=== PATIENT | female | born 1955 | race Hispanic/Latino ===

== ENCOUNTER 2017-09-20 14:22 | Inpatient (IN) | payer MEDICARE ==
[~2017-09-20] VITALS: Ht 149.9 cm; Wt 80.9 kg
[2017-09-20 14:39] LABS: BASOPHILS % (AUTO) 0.5 % (0.0-5.0); HEMATOCRIT 43.6 % (36-48); LYMPHOCYTES % (AUTO) 5.6 % (21.0-51.0); MEAN CORPUSCULAR HEMOGLOBIN 24.7 pg (27.0-33.0); MEAN CORPUSCULAR HGB CONC 30.3 g/dL (32.0-36.0); MEAN CORPUSCULAR VOLUME 81.8 fL (79-99); MONOCYTES % (AUTO) 3.4 % (3.0-13.0); NEUTROPHILS % (AUTO) 90.5 % (40.0-77.0); PLATELET COUNT (AUTO) 223 K/uL (130-400); RED BLOOD CELL COUNT(AUTO) 5.33 MIL/uL (4.00-5.50); RED CELL DISTRIBUTION WIDTH 17.1 % (11.0-15.5); WHITE BLOOD COUNT (AUTO) 12.9 K/uL (4.8-10.8)
[2017-09-20 14:56] LABS: ALBUMIN 3.8 g/dL (3.5-5.0); BILIRUBIN,TOTAL 1.9 mg/dL (0.2-1.0); CREATININE 2.4 mg/dL (0.5-1.5); POTASSIUM 3.7 mmol/L (3.5-5.1)
[2017-09-20] MEDS ORDERED: SODIUM CHLORIDE 0.9% 1000ML 1,000 ML IV ONE (15:07)
[2017-09-20] MEDS ORDERED: INSULIN HUMULIN R 100 UNIT/ML 3ML ONE ×3 (15:08→15:53)
[2017-09-20] MEDS ORDERED: SODIUM CHLORIDE 0.9% 100 ML IV ONE (15:51)
[2017-09-20] MEDS ORDERED: ASPIRIN 325 MG TABLET ONE (17:41)
[2017-09-20] MEDS ORDERED: ENOXAPARIN SODIUM 100 MG/1 ML SQ ONE (17:41)
[2017-09-20 19:52] VITALS: BP 90/48
[2017-09-20] MEDS ORDERED: INSULIN REGULAR, HUMAN 3ML 100 UNIT in SODIUM CHLORIDE 0.9% 99 ML IV PRN ×2 (20:45)
[2017-09-20] MEDS ORDERED: ACETAMINOPHEN 325 MG TAB PO PRN (20:45)
[2017-09-20] MEDS: SODIUM CHLORIDE 0.9% 1000ML 1,000 ML IV SCH (20:49)
[2017-09-20] MEDS ORDERED: METOPROLOL TARTRATE 25 MG TAB PO SCH (21:00)
[2017-09-20 22:12] LABS: CREATINE KINASE MB 20.7 ng/mL (0.5-3.6)
[2017-09-20 22:28] LABS: TROPONIN I 11.76 ng/mL (0.00-0.06)
[2017-09-21] VITALS (32 sets, daily range): BP systolic 65–145; BP diastolic 30–74
[2017-09-21] MEDS: ONDANSETRON HCL MDV 20ML 2 MG/ML VIAL IVP PRN (00:12)
[2017-09-21] MEDS ORDERED: NOREPINEPHRINE 4MG/NS 250ML 250 ML IV SCH (00:45)
[2017-09-21] MEDS ORDERED: SODIUM CHLORIDE 0.9% 500 ML IV SCH (00:45)
[2017-09-21] MEDS ORDERED: LOSA100T29 PO (01:36)
[2017-09-21] MEDS ORDERED: CARV6.25 PO (01:36)
[2017-09-21] MEDS ORDERED: GUAIFENESIN PO (01:36)
[2017-09-21] MEDS ORDERED: AEC81 PO (01:36)
[2017-09-21] MEDS ORDERED: TORS20TA4 PO (01:36)
[2017-09-21] MEDS ORDERED: ISOS120T10 PO (01:36)
[2017-09-21] MEDS ORDERED: SPIR25TA4 PO (01:36)
[2017-09-21] MEDS ORDERED: ATOR40TA71 PO (01:36)
[2017-09-21] MEDS ORDERED: CLOP75TA32 PO (01:36)
[2017-09-21] MEDS ORDERED: ESOM40CA54 PO (01:36)
[2017-09-21] MEDS: SODIUM CHLORIDE 0.9% 1000ML 1,000 ML IV SCH ×2 (02:21→04:10)
[2017-09-21] MEDS ORDERED: NOREPINEPHRINE BITARTRATE 1 MG/1 ML ML IV ONE (02:49)
[2017-09-21] MEDS: DEXTROSE 5 %-0.45 % NACL 1,000 ML IV SCH ×2 (03:12→07:30)
[2017-09-21 04:44] LABS: HEMATOCRIT 40.3 % (36-48); MEAN CORPUSCULAR HEMOGLOBIN 24.7 pg (27.0-33.0); MEAN CORPUSCULAR HGB CONC 32.1 g/dL (32.0-36.0); PLATELET COUNT (AUTO) 214 K/uL (130-400); RED BLOOD CELL COUNT(AUTO) 5.24 MIL/uL (4.00-5.50); RED CELL DISTRIBUTION WIDTH 16.3 % (11.0-15.5); WHITE BLOOD COUNT (AUTO) 15.8 K/uL (4.8-10.8)
[2017-09-21 05:17] LABS: CREATINE KINASE MB 16.4 ng/mL (0.5-3.6); CREATININE 2.6 mg/dL (0.5-1.5); THYROID STIMULATING HORMONE 1.07 uIU/mL (0.36-3.74)
[2017-09-21 05:18] LABS: HEMOGLOBIN A1C 11.6 % (4.0-6.0)
[2017-09-21 05:21] LABS: TROPONIN I 20.7 ng/mL (0.00-0.06)
[2017-09-21] MEDS ORDERED: ASPIRIN 325 MG TABLET PO SCH (09:00)
[2017-09-21] MEDS ORDERED: FAMOTIDINE/PF 20 MG/2 ML VIAL IV SCH (09:00)
[2017-09-21] MEDS: ENOXAPARIN SODIUM 80 MG/0.8 ML SQ SCH (09:05)
[2017-09-21] MEDS ORDERED: METOCLOPRAMIDE 10 MG/2 ML VIAL IVP PRN (10:00)
[2017-09-21] MEDS ORDERED: GUAIFENESIN SUGAR-FREE 100 MG/5 ML UDCUP PO PRN (10:15)
[2017-09-21] MEDS: INSULIN HUMULIN R 100 UNIT/ML 3ML SQ SCH ×3 (11:59→21:21)
[2017-09-21] MEDS: POTASSIUM CHLORIDE 20 MEQ ERTAB PO PRN ×2 (17:03→18:07)
[2017-09-21] MEDS: ATORVASTATIN CALCIUM 40 MG TABLET PO SCH (21:15)
[2017-09-21] MEDS: CARVEDILOL 6.25 MG TABLET PO SCH (21:16)
[2017-09-22] VITALS (14 sets, daily range): BP systolic 100–131; BP diastolic 50–75
[2017-09-22 03:14] LABS: HEMATOCRIT 38.8 % (36-48); MEAN CORPUSCULAR HEMOGLOBIN 25.1 pg (27.0-33.0); MEAN CORPUSCULAR HGB CONC 32.5 g/dL (32.0-36.0); MEAN CORPUSCULAR VOLUME 77.3 fL (79-99); PLATELET COUNT (AUTO) 166 K/uL (130-400); RED BLOOD CELL COUNT(AUTO) 5.02 MIL/uL (4.00-5.50); RED CELL DISTRIBUTION WIDTH 16.3 % (11.0-15.5); WHITE BLOOD COUNT (AUTO) 12.2 K/uL (4.8-10.8)
[2017-09-22 03:20] LABS: CREATININE 1.7 mg/dL (0.5-1.5); POTASSIUM 3.4 mmol/L (3.5-5.1)
[2017-09-22 03:54] LABS: B-TYPE NATRIURETIC PEPTIDE 1470 pg/mL (0-100)
[2017-09-22] MEDS: INSULIN HUMULIN R 100 UNIT/ML 3ML SQ SCH ×4 (07:05→21:06)
[2017-09-22 08:10] LABS: HEPATITIS A ANTIBODY IGM Negative (Negative); HEPATITIS B CORE IGM Negative (Negative); HEPATITIS Bs ANTIGEN SCREEN P Negative (Negative)
[2017-09-22] MEDS: TORSEMIDE 20 MG TAB PO SCH (08:27)
[2017-09-22] MEDS: LOSARTAN 100 MG TABLET PO SCH (08:28)
[2017-09-22] MEDS: CLOPIDOGREL BISULFATE 75 MG TAB PO SCH (08:28)
[2017-09-22] MEDS: PANTOPRAZOLE SODIUM 40 MG TABLET.DR PO SCH (08:28)
[2017-09-22] MEDS: SPIRONOLACTONE 25 MG TAB PO SCH (08:28)
[2017-09-22] MEDS: ASPIRIN 81 MG EC TAB PO SCH (08:28)
[2017-09-22] MEDS: CARVEDILOL 6.25 MG TABLET PO SCH ×2 (08:28→21:04)
[2017-09-22] MEDS: ISOSORBIDE MONO 60 MG TAB.SR PO SCH (08:28)
[2017-09-22] MEDS: ENOXAPARIN SODIUM 80 MG/0.8 ML SQ SCH (08:29)
[2017-09-22] MEDS ORDERED: INSU100V12 SQ (09:56)
[2017-09-22] MEDS: FUROSEMIDE 10 MG/ML 4ML VIAL IV SCH (11:30)
[2017-09-22] MEDS: POTASSIUM CHLORIDE 20 MEQ ERTAB PO PRN (11:30)
[2017-09-22] MEDS: ATORVASTATIN CALCIUM 40 MG TABLET PO SCH (21:04)
[2017-09-22] MEDS: INSULIN GLARGINE 100 UNITS/ML 10 ML VIAL SQ SCH (21:07)
[2017-09-23 03:37] VITALS: BP 105/59
[2017-09-23] MEDS: ONDANSETRON HCL MDV 20ML 2 MG/ML VIAL IVP PRN (04:19)
[2017-09-23 04:24] LABS: HEMATOCRIT 36.1 % (36-48); MEAN CORPUSCULAR HEMOGLOBIN 25.7 pg (27.0-33.0); MEAN CORPUSCULAR HGB CONC 33.2 g/dL (32.0-36.0); MEAN CORPUSCULAR VOLUME 77.4 fL (79-99); PLATELET COUNT (AUTO) 147 K/uL (130-400); RED BLOOD CELL COUNT(AUTO) 4.66 MIL/uL (4.00-5.50); RED CELL DISTRIBUTION WIDTH 16.5 % (11.0-15.5); WHITE BLOOD COUNT (AUTO) 7.6 K/uL (4.8-10.8)
[2017-09-23 04:40] LABS: CREATININE 1.5 mg/dL (0.5-1.5); POTASSIUM 3.2 mmol/L (3.5-5.1)
[2017-09-23 05:10] LABS: B-TYPE NATRIURETIC PEPTIDE 833 pg/mL (0-100)
[2017-09-23] MEDS: PANTOPRAZOLE SODIUM 40 MG TABLET.DR PO SCH (06:15)
[2017-09-23] MEDS: POTASSIUM CHLORIDE 20 MEQ ERTAB PO PRN (06:16)
[2017-09-23] MEDS: INSULIN HUMULIN R 100 UNIT/ML 3ML SQ SCH ×3 (06:19→17:29)
[2017-09-23] MEDS: INSULIN GLARGINE 100 UNITS/ML 10 ML VIAL SQ SCH (06:20)
[2017-09-23 07:00] VITALS: BP 123/70
[2017-09-23] MEDS: SPIRONOLACTONE 25 MG TAB PO SCH (09:02)
[2017-09-23] MEDS: ISOSORBIDE MONO 60 MG TAB.SR PO SCH (09:02)
[2017-09-23] MEDS: CARVEDILOL 6.25 MG TABLET PO SCH ×2 (09:02→21:40)
[2017-09-23] MEDS: TORSEMIDE 20 MG TAB PO SCH (09:02)
[2017-09-23] MEDS: ASPIRIN 81 MG EC TAB PO SCH (09:02)
[2017-09-23] MEDS: LOSARTAN 100 MG TABLET PO SCH (09:02)
[2017-09-23] MEDS: CLOPIDOGREL BISULFATE 75 MG TAB PO SCH (09:02)
[2017-09-23] MEDS: ENOXAPARIN SODIUM 80 MG/0.8 ML SQ SCH (09:03)
[2017-09-23] MEDS: FUROSEMIDE 10 MG/ML 4ML VIAL IV SCH (09:04)
[2017-09-23 11:34] VITALS: BP 109/59
[2017-09-23 16:43] VITALS: BP 111/70
[2017-09-23 20:00] VITALS: BP 107/63
[2017-09-23] MEDS: ATORVASTATIN CALCIUM 40 MG TABLET PO SCH (21:39)
[2017-09-24] VITALS: BP 111/55
[2017-09-24] MEDS: INSULIN HUMULIN R 100 UNIT/ML 3ML SQ SCH ×4 (02:14→17:34)
[2017-09-24] MEDS: INSULIN GLARGINE 100 UNITS/ML 10 ML VIAL SQ SCH ×2 (02:16→06:29)
[2017-09-24 04:00] VITALS: BP 175/55
[2017-09-24] MEDS: PANTOPRAZOLE SODIUM 40 MG TABLET.DR PO SCH (06:27)
[2017-09-24] MEDS: POTASSIUM CHLORIDE 20 MEQ ERTAB PO PRN (06:30)
[2017-09-24 06:43] LABS: POTASSIUM 3.5 mmol/L (3.5-5.1)
[2017-09-24 08:03] VITALS: BP 121/56
[2017-09-24] MEDS ORDERED: LACTULOSE 20 GM/30 ML UDCUP PO SCH (08:45)
[2017-09-24] MEDS: SPIRONOLACTONE 25 MG TAB PO SCH (09:07)
[2017-09-24] MEDS: TORSEMIDE 20 MG TAB PO SCH (09:07)
[2017-09-24] MEDS: ASPIRIN 81 MG EC TAB PO SCH (09:07)
[2017-09-24] MEDS: CARVEDILOL 6.25 MG TABLET PO SCH (09:07)
[2017-09-24] MEDS: LOSARTAN 100 MG TABLET PO SCH (09:07)
[2017-09-24] MEDS: CLOPIDOGREL BISULFATE 75 MG TAB PO SCH (09:07)
[2017-09-24] MEDS: ISOSORBIDE MONO 60 MG TAB.SR PO SCH (09:07)
[2017-09-24] MEDS: ENOXAPARIN SODIUM 80 MG/0.8 ML SQ SCH (09:08)
[2017-09-24] MEDS: FUROSEMIDE 10 MG/ML 4ML VIAL IV SCH (10:05)
[2017-09-24 11:56] VITALS: BP 121/63
[2017-09-24 16:55] VITALS: BP 95/52
== END 2017-09-24 18:33 | disposition home or self-care (01) | DRG 280 ==
LOC: EDH 14:22 → OBSVTOIN 15:52 → INTOOBSV 15:52 → EDHIP 15:52 → 2AH 19:44 → 2CH 09-21 01:53 → 2DH 09-22 15:46
PROVIDERS: ADMIT Internal Medicine; ATTEND Internal Medicine
DX: I21.4 Non-ST elevation (NSTEMI) myocardial infarction (principal); E11.00 Type 2 diabetes mellitus with hyperosmolarity without nonketotic hyperglycemic-hyperosmolar coma (NKHHC); N17.9 Acute kidney failure, unspecified; E72.51 Non-ketotic hyperglycinemia; E87.0 Hyperosmolality and hypernatremia; I13.0 Hypertensive heart and chronic kidney disease with heart failure and stage 1 through stage 4 chronic kidney disease, or unspecified chronic kidney disease; I50.22 Chronic systolic (congestive) heart failure; E11.21 Type 2 diabetes mellitus with diabetic nephropathy; E11.43 Type 2 diabetes mellitus with diabetic autonomic (poly)neuropathy; E11.65 Type 2 diabetes mellitus with hyperglycemia; E11.22 Type 2 diabetes mellitus with diabetic chronic kidney disease; E78.5 Hyperlipidemia, unspecified; E11.51 Type 2 diabetes mellitus with diabetic peripheral angiopathy without gangrene; I25.10 Atherosclerotic heart disease of native coronary artery without angina pectoris; I25.5 Ischemic cardiomyopathy; K31.84 Gastroparesis; K80.20 Calculus of gallbladder without cholecystitis without obstruction; N18.9 Chronic kidney disease, unspecified; I25.2 Old myocardial infarction; Z79.02 Long term (current) use of antithrombotics/antiplatelets; Z79.82 Long term (current) use of aspirin; Z79.899 Other long term (current) drug therapy; Z95.810 Presence of automatic (implantable) cardiac defibrillator; Z91.14 Patient's other noncompliance with medication regimen; Z86.73 Personal history of transient ischemic attack (TIA), and cerebral infarction without residual deficits; Z83.3 Family history of diabetes mellitus; Z82.49 Family history of ischemic heart disease and other diseases of the circulatory system; K31.89 Other diseases of stomach and duodenum
CPT/HCPCS: 36415; 76700; 80048; 80053; 80061; 80074; 82009; 82150; 82550; 82553; 82947; 82948; 83036; 83690; 83874; 83880; 84443; 84484; 85025; 85027; 93005; J1650; J1815; J1940; J3490; J7030; J7042

== ENCOUNTER 2018-04-20 17:01 | Emergency (ER) | payer MEDICARE ==
[~2018-04-20 17:01] MED LIST: AEC81 PO; ATOR40TA71 PO; CARV6.25 PO; CLOP75TA32 PO; ESOM40CA54 PO; GUAIFENESIN PO; INSU100V12 SQ; ISOS120T10 PO; LOSA100T20 PO; SPIR25TA6 PO; TORS20TA4 PO
[2018-04-20 18:16] LABS: BASOPHILS % (AUTO) 1.1 % (0.0-5.0); EOSINOPHILS % (AUTO) 0.4 % (0.0-8.0); HEMATOCRIT 31.8 % (36-48); LYMPHOCYTES % (AUTO) 8.7 % (21.0-51.0); MEAN CORPUSCULAR HGB CONC 31.4 g/dL (32.0-36.0); MEAN CORPUSCULAR VOLUME 76.4 fL (79-99); MONOCYTES % (AUTO) 7.9 % (3.0-13.0); NEUTROPHILS % (AUTO) 81.9 % (40.0-77.0); NUCLEATED RED BLOOD CELLS 0.1 % (0.0-0.19); PLATELET COUNT (AUTO) 201 K/uL (130-400); RED BLOOD CELL COUNT(AUTO) 4.16 MIL/uL (4.00-5.50); RED CELL DISTRIBUTION WIDTH 22.9 % (11.0-15.5); WHITE BLOOD COUNT (AUTO) 8.8 K/uL (4.8-10.8)
[2018-04-20 18:32] LABS: CREATININE 2.1 mg/dL (0.5-1.5); POTASSIUM 3.2 mmol/L (3.5-5.1)
[2018-04-20 18:36] LABS: ALBUMIN 2.7 g/dL (3.5-5.0); BILIRUBIN,DIRECT 1.1 mg/dL (0.0-0.3); BILIRUBIN,TOTAL 1.9 mg/dL (0.2-1.0); TOTAL PROTEIN, SERUM 6.6 g/dL (6.0-8.3)
[2018-04-20 18:37] LABS: B-TYPE NATRIURETIC PEPTIDE 2180 pg/mL (0-100)
[2018-04-20 19:35] LABS: APPEARANCE,URINE Clear (CLEAR); BILIRUBIN,URINE Negative (NEGATIVE); COLOR,URINE Dark Yellow (YELLOW); GLUCOSE, URINE (UA) Negative (NEGATIVE); KETONES,URINE Negative (NEGATIVE); LEUKOCYTE ESTERASE ,URINE Trace (NEGATIVE); NITRATE,URINE Negative (NEGATIVE); OCCULT BLOOD,URINE Negative (NEGATIVE); PROTEIN,URINE Negative (NEGATIVE)
[2018-04-20 19:44] LABS: BACTERIA,URINE Rare /HPF (None Seen); RBC,URINE None Seen /HPF (0-1); YEAST,URINE BUDDING Moderate /HPF (None Seen)
== END 2018-04-20 20:12 | disposition home or self-care (01) ==
LOC: EDH 17:01
DX: S80.812A Abrasion, left lower leg, initial encounter (principal); I11.0 Hypertensive heart disease with heart failure; I50.42 Chronic combined systolic (congestive) and diastolic (congestive) heart failure; I25.10 Atherosclerotic heart disease of native coronary artery without angina pectoris; E11.9 Type 2 diabetes mellitus without complications; E78.5 Hyperlipidemia, unspecified; Z95.0 Presence of cardiac pacemaker; E11.65 Type 2 diabetes mellitus with hyperglycemia; E11.40 Type 2 diabetes mellitus with diabetic neuropathy, unspecified; E87.6 Hypokalemia; W18.39XA Other fall on same level, initial encounter; Y93.89 Activity, other specified; Y92.098 Other place in other non-institutional residence as the place of occurrence of the external cause; Y99.8 Other external cause status
CPT/HCPCS: 36415; 71045; 80048; 80076; 81001; 82550; 83690; 83880; 84484; 85025; 87804; 93005; 93971